=== PATIENT | male | born 1990 | race Caucasian/White ===

== ENCOUNTER 2016-08-13 21:31 | Emergency (ER) | payer BC ==
[~2016-08-13 21:31] MED LIST: AMOXICILLIN500 M2 PO; PERCOCET 5-3251 EACH PO
[2016-08-13] MEDS ORDERED: HYDROCODONE-HO473 ML PO (22:40)
== END 2016-08-14 00:19 ==
LOC: EDMED 21:31
DX: J06.9 Acute upper respiratory infection, unspecified (principal)